=== PATIENT | female | born 1960 | race Two or more races ===

== ENCOUNTER 2024-01-21 14:11 | Emergency (ER) | payer OTHER ==
[~2024-01-21] VITALS: Ht 172.7 cm; Wt 81.6 kg
[2024-01-21] MEDS ORDERED: COZAAR100 MG (14:46)
[2024-01-21] MEDS ORDERED: KETOROLAC TROMETHAMINE 30 MG VIAL IM STA (15:27)
[2024-01-21] MEDS ORDERED: KETOROLAC TROMETHAMINE 30 MG VIAL ONE (15:32)
== END 2024-01-21 17:05 | disposition home or self-care (01) ==
LOC: ER 14:11
DX: J06.9 Acute upper respiratory infection, unspecified (principal); I10 Essential (primary) hypertension; Z20.822 Contact with and (suspected) exposure to COVID-19